=== PATIENT | male | born 1980 | race Two or more races ===

== ENCOUNTER 2025-06-06 10:11 | Outpatient (REF) | payer OTHER, SELFPAY ==
--- OUTSIDE RECORDS SUMMARY | 2025-06-06 09:00 | XMS_ITS | Encounter Summary ---
Author Organization [employer] Address [address] [facility] [address] [place] [address] Care Team Providers Care Entry Level Accounting Clerk Name Role Phone Unavailable Primary Care Provider Unavailabl e Reason for Referral * Consultation (Routine) - Authorized Specialty Diagnoses / Procedures Referred By Contac t Referred To Contact Dermatology / Family Medicine Diagnoses Sharron Verduzco NP [address] [place] [address] Phone: tel: fax: Blanca Gutiérrez MD [address] [place] [address] Phone: tel: fax: Referral ID Status Reason Start Date Expiration Date Visits Requested Visits Authorized [id number] Authorized Consult and Treat 06/06/2025 06/06/2026 1 1 Encounter Details Date Type Department Care Team (Late st Contact Info) Description 06/06/2025 9:00 AM EST Office Visit [facility] [address] [place] [phone] Healthcare maintenance (Primary Dx); Moderate persistent asthma without complication; Tinea pedis of both feet; Furuncle; Anxiety and depression; Hypothyroidism, unspecified type Social History Tobacco Use Types Packs/Day Years Used Date Smoking Tobacco: Never Passive Smoke Exposure: Never Smokeless Tobacco: Never Tobacco Cessation:Counseling Given: Not Answered Alcohol Answer Date Recorded How often do you have a drink containing alcohol ? 1 06/06/2025 How many drinks containing a lcohol do you have on a typical day when you are drinking? 0 06/06/2025 How often do you have six or more drinks on one occasion? 0 06/06/2025 Depression Answer Date Recorded Patient Health Questionnaire-9 Score 1 06/06/2025 Patient Health Questionnaire-9 Score 1 06/06/2025 Last PHQ-9: Questionnaire Data Not on file 1 08/06/2024 Housing Stability Answer Date Recorded What is your housing situation today? I have herberth lee 06/06/[address] you li ve. Do you have problems with any of the following? None of the above 06/06/2025 Food Insecurity Answer Date Recorded Within the past 12 months, y ou worried that your food would run out before you got money to buy more: Never True 06/06/2025 Within the past 12 months,th e food you bought just didn't last and you didn't have enough money to get more: Never True Transportation Answer Date Recorded In the past 12 months, has l ack of transportation kept you from medical appts, meetings, work or from getting things needed for daily living? No 06/06/2025 Utilities Answer Date Recorded In the past 12 months, has t he electric, gas, oil or water company threatened to shut off services in your home? No 06/06/2025 Depression Answer Date Recorded Patient Health Questionnaire-2 Score 0 06/06/2025 Internet Access Answer Date Recorded Internet Access Q1 Yes 06/06/2025 Internet Access Q2 Not on file 06/06/2025 Sex and Gender Information Value Date Recorded Sex Assigned at Male 05/11/2025 10:20 AM EDT Legal Sex Male 10:15 AM EDT Gender Identity Male 05/11/2025 10:20 AM EDT Sexual Orientation Straight 05/11/2025 10 :20 AM EDT documented as of this encounter Last Filed Vital Signs Vital Sign Reading Time Taken Comments Blood Pressure 128/82 06/06/2025 9:07 AM EST Pulse 72 06/06/2025 9:07 AM EST Temperature 36.6 C (97.8 F) 06/06/2025 9:07 AM EST Respiratory Rate 16 06/06/2025 9:07 AM EST Oxygen Saturation 97% 06/06/2025 9:07 AM EST Inhaled Oxygen Concentration - - Weight 84.1 kg (185 lb 8 oz) 06/06/2025 9:07 AM EST Height 181.8 cm (5' 11.56 ) 06/06/2025 9:[address] Body Mass Index 25.47 06/06/2025 9:07 AM EST documented in this encounter Functional Status * Over the past 2 weeks, how often have you been bothered by any of the following problems? Question Answer Date of Assessment Author Patient Health Questionnaire -2 Score 0 06/06/2025 9:59 AM EST Tika Kraus MA * Little interest or pleasure in doing things Answer Date of Assessment Author Not at all 06/06/2025 9:59 AM EST Yadiel Tika Gonsalves MA * Feeling down, depressed, or hopeless Answer Date of Assessment Author Not at all 06/06/2025 9:59 AM EST Yadiel Tika Gonsalves MA * Trouble falling or staying asleep, or sleeping too much Answer Date of Assessment Author Several days 06/06/2025 9:59 AM EST Yadiel Tika Gonsalves MA * Feeling tired or having little energy Answer Date of Assessment Author Not at all 06/06/2025 9:59 AM EST Yadiel Tika Gonsalves MA * Poor appetite or overeating Answer Date of Assessment Author Not at all 06/06/2025 9:59 AM EST Yadiel Tika Gonsalves MA * Feeling bad about yourself - or that you are a failure or have let yourself or your family down Answer Date of Assessment Author Not at all 06/06/2025 9:59 AM EST Yadiel Tika Gonsalves MA * Trouble concentrating on things, such as reading the newspaper or watching television Answer Date of Assessment Author Not at all 06/06/2025 9:59 AM EST Yadiel Tika Gonsalves MA * Moving or speaking so slowly that other people could have noticed? Or the opposite - being so fidgety or restless that you have been moving around a lot more than usual. Answer Date of Assessment Author Not at all 06/06/2025 9:59 AM EST Tika Workman MA * Thoughts that you would be better off or hurting yourself in some way Answer Date of Assessment Author Not at all 06/06/2025 9:59 AM EST Tika Workman MA * Patient Health Questionnaire-9 Score Answer Date of Assessment Author 1 06/06/2025 9:59 AM Tika Gregorio MA * Over the last 2 weeks, how often have you been bothered by any of the following problems? Question Answer Date of Assessment Author Feeling nervous, anxious, or on edge 0 06/06/2025 10:00 AM Tika Mason MA Not being able to stop or control worrying 0 06/06/2025 10:00 AM Tika Mason MA Worrying too much about different things 0 06/06/2025 10:00 AM Tika Mason MA Trouble relaxing 0 06/06/2025 10:00 AM Tika Mason MA Being so restless that it is hard to sit still 0 06/06/2025 10:00 AM Tika Mason MA Becoming easily annoyed or irritable 1 06/06/2025 10:00 AM Tika Mason MA Feeling afraid as if something awful might happen 0 06/06/2025 10:00 AM Tika Pelletier MA ALDEN-7 Total Score 1 06/06/2025 10:00 AM Tika Mason MA * How difficult have these problems made it for you to do your work, take care of things at home, or get along with other people? Answer Date of Assessment Author Not difficult at all 06/06/2025 9:59 AM Tika Segal MA documented as of this encounter Miscellaneous Notes * Assessment & Plan Note - Sofya Lara NP - 06/06/2025 9:00 AM ESTAssociated Problem(s): Anxiety and depression - Anxiety and depression previously present, currently controlled without medication. - PHQ-9 & ADLEN-7 negative today. No further intervention required at this time. * Assessment & Plan Note - Sofya Lara NP - 06/06/2025 9:00 AM ESTAssociated Problem(s): Moderate persistent asthma without complication - Asthma with suboptimal control due to inconsistent use of controller inhalers and ongoing cannabis smoking. Differential includes possible COPD, given symptoms and smoking history. Mucus productionwith yellow and brown coloration noted. - Ordered refills for controller inhalers (Symbicort) and albuterol inhaler. Will consider pulmonary function testing to reassess diagnosis and distinguish between asthma and COPD. Advised to consider non-inhaled forms of cannabis (tinctures, edibles) to reduce pulmonary irritation. Scheduled follow-up after return from [place] to reassess inhaler use and symptom control. Orders: budesonide-formoterol (Symbicort) 80-4.5 MCG/ACT inhaler; Inhale 2 puffs in the morning and at bedtime. Rinse mouth with water after use to reduce aftertaste and incidence of candidiasis. Do not swallow. albuterol 108 (90 Base) MCG/ACT inhaler; Inhale 2 puffs every 4 (four) hours if needed for wheezing. * Assessment & Plan Note - Sofya Lara NP - 06/06/2025 9:00 AM ESTAssociated Problem(s): Hypothyroidism Orders: TSH W/Reflex to FT4; Future * Assessment & Plan Note - Sofya Lara NP - 06/06/2025 9:00 AM ESTAssociated Problem(s): Furuncle - Recurrent subcutaneous abscesses/boils, partially responsive to antibiotics, with persistent lesions. - Placed referral to dermatology for further evaluation and management. Advised to discuss ongoing and persistent lesions with regulatory law specialist. Orders: Referral to [facility] Derm Skin; Future * Assessment & Plan Note - Sofya Lara NP - 06/06/2025 9:00 AM ESTAssociated Problem(s): Tinea pedis of both feet - Plantar calluses with associated pain, pruritus, and intermittent blistering. Wilc-vxl-[id number] treatments ineffective. Etiology unclear. - Recommended keeping feet dry, changing socks frequently, and spending time barefoot when possible. Advised to discuss foot symptoms with dermatology at upcoming referral. -Apply ketoconazole 2% cream to soles of feet and between toes nightly for 4 weeks documented in this encounter Plan of Treatment Scheduled Orders Name Type Priority Associated Diagnoses Orde r Schedule TSH W/Reflex to FT4 Lab Routine Hypothyroidism, unspecified type Expected: 06/06/2025 (Approximate), Expires: 06/06/2026 Comprehensive Metabolic Panel Lab Routine Healthcare maintenance Expected: 06/06/2025 (Approximate), Expires: 06/06/2026 Lipid Panel, Standard Lab Routine Healthcare maintenance Expected: 06/06/2025 (Approximate), Expires: 06/06/2026 Scheduled Referrals Name Type Priority Associated Diagnoses Orde r Schedule Referral to [facility] Derm Skin Outpatient Referral Routine Furuncle Expected: 06/06/2025 (Approximate), Expires: 06/06/2026 documented as of this encounter Procedures Procedure Name Priority Date/Time Associated Diagnosis Comments CBC WITH AUTO DIFFERENTIAL Routine 06/06/2025 10:17 AM EST Healthcare maintenance documented in this encounter Results * (ABNORMAL) CBC auto differential (06/06/2025 10:17 AM EST) White Blood Count 5.5 4.8 - 10.8 X10*3/uL [facility] Red Blood Count 3.85(L) 4.60 - 5.80 X10*6/uL [facility] Hemoglobin 12.5(L) 14.0 - 18.0 g/dl [facility] Hematocrit 36.6(L) 42.0 - 52.0 % [facility] Mean Corpuscular Volume 95.1 80.0 - 98.0 fL [facility] Mean Corpuscular Hemoglobin 32.5 27.0 - 33.0 pg [facility] Mean Corpuscular HGB Conc 34.2 31.0 - 36.0 g/dl [facility] Red Cell Distribution Width 13.9 11.0 - 16.0 % [facility] Platelet Count 131(L) 160 - 400 X10*3/uL [facility] Mean Platelet Volume 12.4 9.4 - 12.4 fL [facility] Neutrophils Percent Auto 47.0 45 - 73 % [facility] Imm Gran Pct Auto 0.2 0.0 - 0.4 % [facility] Lymphocytes Percent Auto 29.7 20 - 40 % [facility] Monocytes Percent Auto 10.6 2 - 11 % [facility] Eosinophils Percent Auto 10.9(H) 0 - 4 % [facility] Basophils Percent Auto 1.6 0 - 2 % [facility] NRBC Pct Auto 0.0 0.0 - 0.2 /100WBC [facility] Neutrophils Absolute Auto 2.6 2.0 - 8.3 x10*3/uL [facility] Imm Gran Abs Auto 0.01 0.00 - 0.03 X10*3/uL [facility] Lymphocytes Absolute Auto 1.6 1.2 - 4.9 X10*3/uL [facility] Monocytes Absolute Auto 0.6 0.1 - 1.2 X10*3/uL [facility] Eosinophils Absolute Auto 0.6(H) 0.0 - 0.4 X10*3/uL [facility] Basophils Absolute Auto 0.1 0.0 - 0.2 X10*3/uL [facility] NRBC Abs Auto 0.000 0.0 - 0.012 X10*3/uL [facility] Blood Venous blood specimen / Unknown 06/06/2025 10:17 AM EST 06/06/2025 11:26 AM EST us Sharron Sue [employer] LAB BLOOD ORDERABLES Final Resul t [facility] [address] [place], [place] [phone] documented in this encounter Visit Diagnoses Diagnosis Healthcare maintenance- Primary Moderate persistent asthma without complication Tinea pedis of both feet Furuncle Carbuncle and furuncle of unspecified site Anxiety and depression Hypothyroidism, unspecified type documented in this encounter Additional Health Concerns Assessment Noted Time PHQ-9 Depression Total Score: 1 06/06/ 25 9:59 AM EST documented as of this encounter
[2025-06-06 11:29] LABS: MANUAL DIFF FLAG NO
[2025-06-06 11:34] LABS: Hematocrit 36.6 % (42.0-52.0); Hemoglobin 12.5 g/dl (14.0-18.0); Imm Gran Abs Auto 0.01 X10*3/uL (0.00-0.03); Imm Gran Pct Auto 0.2 % (0.0-0.4); Lymphocytes Absolute Auto 1.6 X10*3/uL (1.2-4.9); Mean Corpuscular HGB Conc 34.2 g/dl (31.0-36.0); Mean Corpuscular Hemoglobin 32.5 pg (27.0-33.0); Mean Corpuscular Volume 95.1 fL (80.0-98.0); NRBC Abs Auto 0.000 X10*3/uL (0.0-0.012); NRBC Pct Auto 0.0 /100WBC (0.0-0.2); Platelet Count 131 X10*3/uL (160-400); Red Blood Count 3.85 X10*6/uL (4.60-5.80); White Blood Count 5.5 X10*3/uL (4.8-10.8)
--- OUTSIDE RECORDS SUMMARY | 2025-06-06 11:59 | XMS_ITS | Clinical Summary ---
Author Organization [facility] Address [address] [place] [phone] Phone Care Team Providers Care Fitter Type Bar And Segment Name Role Phone Pcp, Unknown Primary Care Provider Unavailabl e Social History Tobacco Use Types Packs/Day Years Used Date Smoking Tobacco: Never Assessed Education Answer Date Recorded Are you interested in more education? Not on hsyanne e 04/24/2025 Are you concerned about learning? Not on file 04/24/2025 No 04/24/2025 No 04/24/2025 Digital Access Answer Date Recorded No 04/24/2025 No 04/24/2025 Reliable internet access at home? Not on file 04/24/2025 Device with a working camera? Not on file Sex and Gender Information Value Date Recorded Sex Assigned at Not on file Legal Sex Male 9:47 AM EDT Gender Identity Not on file Sexual Orientation Not on file Plan of Treatment Upcoming Encounters Date Type Department Care Team (Late st Contact Info) Description 10/23/2025 1:20 PM EDT Office Visit [facility] Internal Medicine [address] [place] [address] Serenity Espinosa PA-C [address] [place] [address] [email or web address] Health Maintenance Due Date Last Done Comments Adult Td,Tdap Booster 1980 LIPID PANEL 1980 DEPRESSION SCREENING 1992 SMOKING Hx and SMOKELESS TOB ACCO SCREENING 1993 HEPATITIS C SCREENING 1998 HIV ONE-TIME SCREENING (18-6 5 YEARS) 1998 INFLUENZA VACCINE (#1) 2025 COVID-19 VACCINE (2024-2 6 season) 2025 COLOGUARD 2025 COLONOSCOPY 2025 COLORECTAL CANCER SCREENING 2025 FIT TEST 2025 FOBT 2025 SIGMOIDOSCOPY 2025 VIRTUAL COLONOSCOPY 2025 HEPATITIS A VACCINES Aged Out No long er eligible based on patient's age to complete this topic HIB VACCINES Aged Out No longer eligi ble based on patient's age to complete this topic MENINGOCOCCAL VACCINES (ACWY) Aged Out No longer eligible based on patient's age to complete this topic MENINGOCOCCAL VACCINES (B) Aged Out N o longer eligible based on patient's age to complete this topic PNEUMOCOCCAL VACCINES (0-49 years) Aged Out No longer eligible based on patient's age to complete this topic Medical Devices Not on file Insurance JUAN PANDYA [id number] [facility] MEDICARE REPLACEMENT JUAN PANDYA [id number] [place] [address] [place] [address] RE[place] [place] [address] [place] [address] [employer] MEDICARE REPLACEMENT JUAN PANDYA [facility] Care Teams Fitter Type Bar And Segment Relationship Specialty Start Date End Date Pcp, Unknown PCP - General 04/24/25 Additional Source Comments The information contained in this document represents components of the legal health record. It is not the complete legal health record.[facility]
--- OUTSIDE RECORDS SUMMARY | 2025-06-06 11:59 | XMS_ITS | Encounter Summary ---
Author Organization [employer] Address [address] [facility] [address] [place] [address] Care Team Providers Care Belt Puncher Name Role Phone Unavailable Primary Care Provider Unavailabl e Encounter Details Date Type Department Care Team (Latest Contact Info) Description 06/06/2025 Travel Social History Tobacco Use Types Packs/Day Years Used Date Smoking Tobacco: Never Passive Smoke Exposure: Never Smokeless Tobacco: Never Alcohol Answer Date Recorded How often do [...] AM EDT documented as of this encounter Functional Status * Over the past 2 weeks, how often have you been bothered by any of the following problems? Question Answer Date of Assessment Author Patient Health Questionnaire -2 Score 0 06/06/2025 9:59 AM Tika Mason MA * Little interest or pleasure in doing things Answer Date of Assessment Author Not at all 06/06/2025 9:59 AM Tika Gregorio MA * Feeling down, depressed, or hopeless Answer Date of Assessment Author Not at all 06/06/2025 9:59 AM Tika Gregorio MA * Trouble falling or staying asleep, or sleeping too much Answer Date of Assessment Author Several days 06/06/2025 9:59 AM Tika Gregorio MA * Feeling tired or having little energy Answer Date of Assessment Author Not at all 06/06/2025 9:59 AM Tika Gregorio MA * Poor appetite or overeating Answer Date of Assessment Author Not at all 06/06/2025 9:59 AM Tika Gregorio MA * Feeling bad about yourself - or that you are a failure or have let yourself or your family down Answer Date of Assessment Author Not at all 06/06/2025 9:59 AM Tika Gregorio MA * Trouble concentrating on things, such as reading the newspaper or watching television Answer Date of Assessment Author Not at all 06/06/2025 9:59 AM Tika Gregorio MA * Moving or speaking so slowly that other people could have noticed? Or the opposite - being so fidgety or restless that you have been moving around a lot more than usual. Answer Date of Assessment Author Not at all 06/06/2025 9:59 AM Tika rGegorio MA * Thoughts that you would be better off or hurting yourself in some way Answer Date of Assessment Author Not at all 06/06/2025 9:59 AM Tika Gregorio MA * Patient Health Questionnaire-9 Score Answer [...] Segal MA documented as of this encounter Plan of Treatment Not on file documented as of this encounter Visit Diagnoses Not on filedocumented in this encounter Additional Health Concerns Assessment Noted Time PHQ-9 Depression Total Score: 1 06/06/20 9:59 AM EST documented as of this encounter
--- OUTSIDE RECORDS SUMMARY | 2025-06-06 11:59 | XMS_ITS | Clinical Summary ---
Author Organization [facility] Address [address] [place] [address] Care Team Providers Care Credit Balance Specialist Name Role Phone Unavailable Primary Care Provider Unavailabl e Social History Tobacco Use Types Packs/Day Years Used Date Smoking Tobacco: Never Assessed Sex and Gender Information Value Date Recorded Sex Assigned at Not on file Legal Sex Male 6:14 PM EDT Gender Identity Not on file Sexual Orientation Not on file Plan of Treatment Health Maintenance Due Date Last Done Comments Hepatitis C Virus Screening 1980 HIV Screening 1993 DTaP/Tdap/Td Vaccines (1 - Tdap) 1999 Hepatitis B Vaccines (1 of 3 - 19+ 3-dose series) 1999 COVID-19 Vaccine (2023-2 5 season) 2025 HPV Vaccines (No Doses Required) Completed Pneumococcal Vaccine: Pediat mani (0-5 Years) and At-Risk Patients (6 to 49 Years) Aged Out No longer eligible b ased on patient's age to complete this topic
--- OUTSIDE RECORDS SUMMARY | 2025-06-06 11:59 | XMS_ITS | Continuity of Care Document ---
Author Organization [facility], [facility] Address [address] [place] [address] Care Team Providers Care Dungeon Master Name Role Phone HIM CCA OTHER Assessment No assessment recorded. Plan of Treatment Reminders Order Date Submit Date Provider Last Modified By Organization Details Last Modified Time Details Appointments None recorded. Lab None recorded. Referral None recorded. Procedures None recorded. Surgeries None recorded. Imaging None recorded. Medication Orders Bactrim DS 800 mg-160 mg tablet 2024 025 [facility]armacy #[id number], [address] [place], [address], 05:01:26 Bactrim DS 800 mg-160 mg tablet 2024 025 [facility]armacy #[id number], [address] [place], [address], 05:01:26 ipratropium 0.5 mg-albutero l 3 mg (2.5 mg base)/3 mL nebulizatio n soln 2024 025 [facility]/Pharmacy #[id number], [address] [place], [address], 5 21:35:00 prednisone 20 mg tablet 2024 025 [facility]/Pharmacy #[id number], [address] [place], [address], 05:01:33 prednisone 20 mg tablet 2024 025 [facility]armacy #[id number], [address] [place], [address], 05:01:33 Patient TargetsNo targets recorded. Patient InstructionsNo instructions recorded. Reason for Referral None Reported. Medical Equipment None Reported. Allergies No known drug allergies Medications Name Sig Start Date Stop Date Status Note LastModified by Organization Details LastModified Time prednisone 10 mg tablet TAKE 4 TAB BY MOUTH FOR 3 DAYS, THEN 3 TABS FOR 3 DAYS, THEN 2 TABS FOR 3 DAYS, THEN 1 TAB X 3 DAY active Not Available Not Available No t Available azithromyci n 250 mg tablet TAKE 2 TABLETS BY MOUTH ONCE ON DAY 1, THEN 1 TABLET BY MOUTH ONCE ON DAYS 2 THROUGH 5. 05/11 completed Not Available Not Available Not Available meloxicam 15 mg tablet TAKE 1 TABLET EVERY DAY BY ORAL ROUTE AFTER MEAL(S). active Not Available Not Available No t Available prednisone 20 mg tablet Take 2 tablets every day by oral route for 4 days. 05/22 completed Not Available Not Available Not Available aspirin 81 mg tablet,hermilo yed release TAKE 1 TABLET BY MOUTH TWO TIMES A DAY. active Not Available Not Available No t Available acetaminoph en 500 mg tablet TAKE 2 TABLETS BY MOUTH 3 TIMES A DAY NEEDED FOR PAIN,INST R:NOT TO EXCEED 3000 MG/DAY active Not Available Not Available No t Available oxycodone 15 mg tablet TAKE 1 TABLET EVERY 6 HOURS BY ORAL ROUTE WITH MEAL(S) FOR 7 DAYS, FOR PAIN NEEDED. active Not Available Not Available No t Available fluticasone propionate 50 mcg/actuati on nasal spray,suspe nsion USE 1 SPRAY IN EACH NOSTRIL TWICE A DAY active Not Available Not Available No t Available doxycycline hyclate 100 mg tablet TAKE 1 TABLET BY MOUTH 2 TIMES A DAY FOR 14 DAYS,MAY TAKE WITH FOOD.TAKE WITH FLUIDS 05/11 completed Not Available Not Available Not Available Hibiclens 4 % topical liquid 1 APPLICATO R TOPICALLY ONCE,INST R: DIRECTED active Not Available Not Available No t Available oxycodone 5 mg tablet TAKE 1 TABLET EVERY DAY BY ORAL ROUTE NEEDED FOR 7 DAYS, FOR PAIN. active Not Available Not Available No t Available Bactrim DS 800 mg-160 mg tablet Take 1 tablet every 12 hours by oral route for 5 days. 10/31/ 2025 11/12 /2025 completed Not Available Not Available Not Available cholecalcif serge (vitamin D3) 1,250 mcg (50,000 unit) capsule TAKE 1 CAPSULE BY MOUTH EVERY WEEK FOR 84 DAYS active Not Available Not Available No t Available 12 Hour Decongestan t ER 120 mg tablet,exte nded release TAKE 1 TABLET BY MOUTH EVERY 12 HOURS NEEDED FOR COLD SYMPTOMS active Not Available Not Available No t Available fluticasone furoate 100 mcg-vilante rol 25 mcg/dose inhalation powder INHALE 1 PUFF BY MOUTH DAILY active Not Available Not Available No t Available Vitals Date Recorded Respiratory rate Body weight Heart rate Body height Body temperature Oxygen saturation Systolic And Diastolic Provider Name and Address Organization Details Last Updated DateTime 5 16 /min 06610.7 44 g 75 /min 180.34 cm 98 [degF] 94 % 130/90 mm[Hg] Not Available [facility] - production 5 21:23:55 Social History None recorded. Functional Status None recorded. Mental Status None recorded. Family History Nothing Reported. Medical History No medical history recorded. Past Encounters Encounter ID Performer Location Encounter Start Date Encounter Closed Date Diagnosis/Indication Diagnosis SNOMED-CT Code Diagnosis ICD10 Code Diagnosis IMO Codes Diagnosis Note [id number] RADHA TATUM MD [facility] Medical [address] [address] 05/11/2025 21:17:16 05/15/2025 14:19:29 Furuncle of buttock 51273065 L02.32 123 Evaluation in the field was performed by my contracting engineer colleague, as noted above, I provided real-time direction and supervisio n for this visit. The evaluation revealed 44-year-ol d male with a history of Asthma on Symbicort, Breo Ellipta, and Albuterol, presenting with painful boils on the buttocks for the past 2 days. Spouse reports multiple red, tender lumps on the buttocks that have increased in size. One lesion has a central white head appearing close to opening but no active drainage. The patient denies fever or chills, is not taking any pain medication , and reports pain severe enough to prevent sitting comfortabl y. Vital Signs:BP 130/90 , Pulse 75 bpm, Resp 16, Temp 98.0 F, SpO2 94% on room airExam:AA O 3, intermitte ntly coughing.L ungs: Diffuse expiratory wheeze.Ski n: Two small, inflamed, tender nodules over the bilateral gluteal region, consistent with early furuncles (boils). No active drainage or fluctuance noted.Russell rgies reviewed. Impression :Bilateral gluteal furuncles (boils) early localized infection, no abscess formation. Plan:Bactr im DS 1 tablet BID 5 days.Warm compresses 3 4 times daily to promote drainage.T ylenol 1 gram every 8 hours PRN for pain.Encou rage adequate hydration and maintain hygiene of affected area.Red flags discussed including : fever, spreading redness, increasing pain, drainage, or signs of abscess return or seek urgent care if these occur. Primary care, consider__ _ Dispositio n: We discussed the diagnostic uncertaint y of home visits and the risk associated with this. In this case, the patient and I felt this to be an acceptable and reasonable amount of risk given the benefit of avoiding an ED visit. We discussed the need to seek care urgently/e mergently in the setting of any new or worsening serious symptoms, particular ly fever, spreading redness, increasing pain, drainage, or signs of abscess Acute asthma [id number] J 45.528 [id number] 44-year-ol d male with a history of asthma on Symbicort, Breo Ellipta, and Albuterol presenting with intermitte nt dry cough and wheezing. Completed a prednisone course about 3 weeks ago. Denies sick contacts, fever, or chills.Exa m:AAO 3, intermitte nt dry cough. Diffuse expiratory wheeze noted. SpO 94% on room air. Impression :Mild asthma exacerbati on. Plan:Conor mccullough x1 administer ed.Prednis one 40 mg daily 5 days; first dose given by contracting engineer. Continue chronic asthma medication s (Symbicort , Breo Ellipta, Albuterol) .Red flags reviewed: worsening shortness of breath, chest pain, or lack of improvemen t advised to seek urgent care or ED if symptoms worsen. Health Concerns Section Related Observation LastModified by Organization Detai ls LastModified Time None Recorded Concern Status LastModified by Organization Details LastModified Time None Recorded Payers Encounter Date Sequence Insurance Name Policy Number Policy Echols Covered Member ID Echols Member ID Guarantor Name 05/11/2025 1 [facility] - DOS ON OR AFTER 2022 - DUAL ELIGIBLE - ALF OPTIONS AND ONE CARE (MEDICARE REPLACEMENT/AD VANTAGE - HMO) Rangel Soliz [id number] Rangel Soliz Notes Date Note Type Note Provider Name and Address Organization Details Recorded Time 05/11/2025 text/html ROS as noted in the [facility] Nurse Triage Notes (Lalitha Gunderson): Reason For Request: Patient has boils on his Butt, and would like them checked out or to talk to a nurse. Patient Reports: Abscess Denies: Carlin Flash, circumferential carlin Carlin reported with black tissue to the area Open skin area after a fall with uncontrolled bleeding Abscess/infection with streaking noted, presence of fever or without Chief Complaints: Wound Care PMH: Other PMH Reviewed at 05/11/202553 Allergies Reviewed at 05/11/2025:53 Comments: 44 y.o male complains of Wound Care Spouse reports patient has several lumps to buttocks. Areas are painful and red that have been increasing in size over the last 2 days. One lump has a white head that appears close to opening. Not draining currently. No fever or chills. Not taking anything for pain. History of folliculitis with antibiotic treatment. I provided information on the mobile health provider response time and advised the patient and/or caregiver to monitor reported signs and symptoms. I discussed the warning signs of when to seek emergency care. ..................... ..................... ..................... ..................... ..................... ..................... ............... Aerial Gunner Note From Zach Dhillon: [facility] responds to the listed address for a 44 yom w/ a c/c of boils on his rump. Upon arrival on scene, pt answers the door for [facility]. He is alert and fully ambulatory and NAD. No stridor or sonorous respirations are present, no facial droop, slurred speech, or one-sided weakness are observed and he is not bleeding anywhere. Pt tells [facility] he has a life-long hx of folliculitis and for the past 2 days, he has had some hard and painful bumps on his rear end that have been getting bigger and more painful. He and his girlfriend on scene report one of the bumps had some drainage. He also has two very small bumps forming on his head. It has been awhile since he has had an issue and they normally clear up after abx. He does not remember what abx he has been prescribed in the past, but he has NKDA. During physical assessment, it is noted pt has a wheezy and dry cough and expiratory wheezes and [facility] offers to ask about administering a dupneb for him. He says he has asthma and he is on three inhalers for control and has a SVN. He was placed on a prednisone taper to treat a developing URI about three weeks ago, but he feels the symptoms are coming back and he is excited about a duoneb. Pt consents to evaluation and tx today. [facility] gathers pt consent signature. Vital signs are obtained and pt is assessed. Pt is normotensive, afebrile, and not hypoxic, but SpO2 is 94% on RA. Overall physical exam is unremarkable, but expiratory wheezes are noted throughout the lungs. Pt also has two quarter-sized lumps, one on each glute between the folds. One is red and appears to have recently drained and the other is not as red and appears to be intact. Pt also has two very small and hard bumps on the posterior parietal area of his scalp. Photos are obtained for [facility] inspections. [facility] contacts [facility] and discusses the above. [facility] prescribes bactrim and order 800mg [id number] PO for pt. [facility] also approves a duoneb for the pt and 40mg prednisone PO and sends prescription for abx and prednisone taper to pt's pharmacy. [facility] administers 800mg x1 tablet bactrim PO and 20mg prednisone x2 tablets PO to pt. [facility] also administers one duoneb at 8lpm via nebulizer pipe. Lung sounds are reassessed post neb and are improved to clear to auscultation bilaterally. Pt subjectively feels better post neb. [facility] recommends pt use his Symbicort BID and to continue his Abreo as prescribed and his SVN treatments. [facility] also recommends pt go to the ED if his skin condition gets worse or if he develops a high fever. Pt thanks [facility] for coming. [facility] is clear. Report completed by CHAMP Dhillon [id number]. [facility] Medication Orders: Bactrim DS 800 mg-160 mg tablet: Administered ipratropium 0.5 mg-albuterol 3 mg (2.5 mg base)/3 mL nebulization soln: Administered prednisone 20 mg tablet: Administered ..................... ..................... ..................... ..................... ..................... ..................... ............... [facility] Consulted: Radha Tatum ..................... ..................... ..................... ..................... ..................... ..................... ............... Disposition: John TATUM MD [address] [facility],[address], [place], [address], [place] 05/12/2025 07:33:50
--- OUTSIDE RECORDS SUMMARY | 2025-06-06 11:59 | XMS_ITS | Encounter Summary ---
Author Organization [employer] Address [address] [place] [address] [address] [place] [address] Care Team Providers Care Side Puller Name Role Phone Unavailable Primary Care Provider Unavailabl e Reason for Visit * Reason Onset Date Comments Chart Prep 06/05/2025 Encounter Details Date Type Department Care Team (Late st Contact Info) Description 06/05/2025 Telephone [facility] MEDICINE [address] [place], [place] [phone] Sofya Lara NP [address] [place] [address] Chart Prep Social History Tobacco Use Types Packs/Day Years Used Date Smoking Tobacco: Never Assessed Alcohol Answer Date Recorded How often do [...] is your housing situation today? I have herberthvarinder lee 06/06/[address] you [...] AM EDT documented as of this encounter Miscellaneous Notes * Telephone Encounter - Tika Ng [place] - 06/05/2025 4:03 PM EST Chart Prep Labs: not applicable Images: not applicable Referrals: not applicable Vaccines due: Covid, Flu, PCV20, Tdap, Hep B, and HPV Screenings: colonoscopy and HIV, Hep C. Lipid panel. Overdue care gaps: SBIRT, SDOH, PHQ-9, ALDEN-7, Oral health screening, and Tobacco documented in this encounter Plan of Treatment Not on file documented as of this encounter Visit Diagnoses Not on filedocumented in this encounter
--- OUTSIDE RECORDS SUMMARY | 2025-06-06 11:59 | XMS_ITS | Clinical Summary ---
Author Organization [employer] Address [address] [facility] [address] [place] [address] Care Team Providers Care Icing Coater Name Role Phone Unavailable Primary Care Provider Unavailabl e Allergies No known active allergies Medications budesonide-formot serge (Symbicort) 80-4.5 MCG/ACT inhalerIndication s:Moderate persistent asthma without complication Inhale 2 puffs in the morning and at bedtime. Rinse mouth with water after use to reduce aftertaste and incidence of candidiasis. Do not swallow. 10.2 g 11 5 06/06/20 Active albuterol 108 (90 Base) MCG/ACT inhalerIndication s:Moderate persistent asthma without complication Inhale 2 puffs every 4 (four) hours if needed for wheezing. 18 g 5 06/06/20 Active ketoconazole (NIZOral) 2 % creamIndications: Tinea pedis of both feet Apply to soles of feet and between toes nightly for 4 weeks 60 g Active Active Problems Problem Noted Date Diagnosed Date Anxiety and depression 06/06/2025 Assessment & Plan (06/06/2025 10:29 AM EST): - Anxiety and depression previously present, currently controlled without medication. - PHQ-9 & ALDEN-7 negative today. No further intervention required at this time. Moderate persistent asthma without complication 06/06/2025 Assessment & Plan (06/06/2025 10:29 AM EST): - Asthma with suboptimal control due to inconsistent use of controller inhalers and ongoing cannabis smoking. Differential includes possible COPD, given symptoms and smoking history. Mucus production with yellow and brown coloration noted. - Ordered refills for controller inhalers (Symbicort) and albuterol inhaler. Will consider pulmonary function testing to reassess diagnosis and distinguish between asthma and COPD. Advised to consider non-inhaled forms of cannabis (tinctures, edibles) to reduce pulmonary irritation. Scheduled follow-up after return from [place] to reassess inhaler use and symptom control. Orders: budesonide-formoterol (Symbicort) 80-4.5 MCG/ACT inhaler; Inhale 2 puffs in the morning and at bedtime. Rinse mouth with water after use to reduce aftertaste and incidence of candidiasis. Do not swallow. albuterol 108 (90 Base) MCG/ACT inhaler; Inhale 2 puffs every 4 (four) hours if needed for wheezing. 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 [id number] treatments ineffective. Etiology unclear. - Recommended keeping feet dry, changing socks frequently, and spending time barefoot when possible. Advised to discuss foot symptoms with dermatology at upcoming referral. -Apply ketoconazole 2% cream to soles of feet and between toes nightly for 4 weeks Furuncle 06/06/2025 Assessment & Plan (06/06/2025 10:29 AM EST): - Recurrent subcutaneous abscesses/boils, partially responsive to antibiotics, with persistent lesions. - Placed referral to dermatology for further evaluation and management. Advised to discuss ongoing and persistent lesions with communicable disease specialist. Orders: Referral to [facility] Derm Skin; Future Encounters Date Type Department Care Team Description 06/06/2025 9:00 AM EST Office Visit [facility] MEDICINE [address] [place] [address] Healthcare maintenance (Primary Dx); Moderate persistent asthma without complication; Tinea pedis of both feet; Furuncle; Anxiety and depression; Hypothyroidism, unspecified type 06/06/2025 Travel 06/05/2025 Telephone [facility] MEDICINE [address] [place] [address] Sofya Lara NP Chart Prep 05/30/2025 Travel from Last 3 Months Immunizations Immunization Administration Dates Next Due Tdap 08/29/2018 Family History Medical History Relation Name Comments Diabetes Mother Relation Name Status Comments Mother Social History Tobacco Use Types Packs/Day Years [...] Orientation Straight 05/11/2025 10 :20 AM EDT Last Filed Vital Signs Vital Sign Reading [...] Mass Index 25.47 06/06/2025 9:07 AM EST Plan of Treatment Health Maintenance Due Date Last Done Comments CT Colonography 1980 Colonoscopy 1980 Colorectal Cancer Screening 1980 FIT DNA/Cologuard 1980 FIT 1980 FOBT 1980 HIV Screening 1980 Lipid Panel 1980 Sigmoidoscopy 1980 Family Planning (PISQ) 1995 HPV Vaccines (1 - Male 3-dos e series) 1995 Hepatitis C Screening 1998 Hepatitis B Vaccines (1 of 3 - 19+ 3-dose series) 1999 Pneumococcal Vaccine: Pediatrics (0 to 5 Years) and At-Risk Patients (6 to 49) Years (1 of 2 - PCV) 1999 COVID-19 Vaccine (1 - 2024-2 6 season) 2025 Influenza Vaccine (#1) 2025 Alcohol/Substance Use Screening 06/06/2026 06/06/2025 Depression Screening 06/06/2026 06/06/2025, 06/06/2025 Disability Screening 06/06/2026 06/06/2025 SDOH Screening 06/06/2026 06/06/2025 Tobacco Screening 06/06/2026 06/06/2025 DTaP/Tdap/Td Vaccines (2 - T d or Tdap) 08/29/2028 08/29/2018 Zoster Vaccines (1 of 2) 2030 RSV Patients and Patients Aged 60 years or older (1 - 1-dose 75+ series) 2055 HIB Vaccines Aged Out No longer eligi ble based on patient's age to complete this topic Hepatitis A Vaccines Aged Out No long er eligible based on patient's age to complete this topic IPV Vaccines Aged Out No longer eligi ble based on patient's age to complete this topic Meningococcal B Vaccine Aged Out No l onger eligible based on patient's age to complete this topic Meningococcal Vaccine Aged Out No stacy joshua eligible based on patient's age to complete this topic RSV under 20 months Aged Out No longe r eligible based on patient's age to complete this topic Rotavirus Vaccines Aged Out No longer eligible based on patient's age to complete this topic Procedures Procedure Name Priority Date/Time Associated Diagnosis Comments CBC WITH AUTO DIFFERENTIAL Routine 06/06/2025 10:17 AM EST Healthcare maintenance from Last 3 Months Results * (ABNORMAL) CBC auto differential (06/06/2025 10:17 AM EST) White Blood Count 5.5 4.8 - 10.8 X10*3/uL [facility] Red Blood Count 3.85(L) 4.60 - 5.80 X10*6/uL [facility] Hemoglobin 12.5(L) 14.0 - 18.0 g/dl [facility] Hematocrit 36.6(L) 42.0 - 52.0 % [facility] Mean Corpuscular Volume 95.1 80.0 - 98.0 fL [facility] Mean Corpuscular Hemoglobin 32.5 27.0 - 33.0 pg [facility] Mean Corpuscular HGB Conc 34.2 31.0 - 36.0 g/dl [facility] Red Cell Distribution Width 13.9 11.0 - 16.0 % [facility] Platelet Count 131(L) 160 - 400 X10*3/uL [facility] Mean Platelet Volume 12.4 9.4 - 12.4 fL [facility] Neutrophils Percent Auto 47.0 45 - 73 % [facility] Imm Gran Pct Auto 0.2 0.0 - 0.4 % [facility] Lymphocytes Percent Auto 29.7 20 - 40 % [facility] Monocytes Percent Auto 10.6 2 - 11 % [facility] Eosinophils Percent Auto 10.9(H) 0 - 4 % [facility] Basophils Percent Auto 1.6 0 - 2 % [facility] NRBC Pct Auto 0.0 0.0 - 0.2 /100WBC [facility] Neutrophils Absolute Auto 2.6 2.0 - 8.3 x10*3/uL [facility] Imm Gran Abs Auto 0.01 0.00 - 0.03 X10*3/uL [facility] Lymphocytes Absolute Auto 1.6 1.2 - 4.9 X10*3/uL [facility] Monocytes Absolute Auto 0.6 0.1 - 1.2 X10*3/uL [facility] Eosinophils Absolute Auto 0.6(H) 0.0 - 0.4 X10*3/uL [facility] Basophils Absolute Auto 0.1 0.0 - 0.2 X10*3/uL [facility] NRBC Abs Auto 0.000 0.0 - 0.012 X10*3/uL [facility] Blood Venous blood specimen / Unknown 06/06/2025 10:17 AM EST 06/06/2025 11:26 AM EST us Sharron Sue NP LAB BLOOD ORDERABLES Final Resul t [facility] [address] [place], [place] [phone] [phone] from Last [address] [facility] < 65
--- OUTSIDE RECORDS SUMMARY | 2025-06-06 12:00 | XMS_ITS | Data Portability ---
Author Organization [facility] [facility] Address [address] [place] [address] Care Team Providers Care Dean Of Graduate Studies Name Role Phone HIM CCA OTHER Assessment No assessment recorded. Plan of Treatment Reminders Order Date Submit Date Provider Last Modified By Organization Details Last Modified Time Details Appointments None recorded. Lab None recorded. Referral None recorded. Procedures None recorded. Surgeries None recorded. Imaging None recorded. Medication Orders Bactrim DS 800 mg-160 mg tablet 2024 025 [facility]acy #[id number], [address] [place], [id number], 05:01:26 Bactrim DS 800 mg-160 mg tablet 2024 025 [facility]armacy #[id number], [address] [place], [address], 5 05:01:26 ipratropium 0.5 mg-albutero l 3 mg (2.5 mg base)/3 mL nebulizatio n soln 2024 025 [facility]/Pharmacy #[id number], [address] [place], [address], 5 21:35:00 prednisone 20 mg tablet 2024 025 [facility]armacy #[id number], [address] [place], [address], 5 05:01:33 prednisone 20 mg tablet 2024 025 [facility] #[id number], [address] [place], [address], 05:01:33 Patient TargetsNo targets recorded. Patient InstructionsNo [...] hours by oral route for 5 days. 05/23 completed Not Available Not Available Not Available [...] Details Last Updated DateTime 5 16 /min 20308.7 44 g 75 /min 180.34 cm 98 [...] ICD10 Code Diagnosis IMO Codes Diagnosis Note [id number] RADHA TATUM MD [facility] ED Medical [address] [address] 05/11/2025 21:17:16 05/15/2025 14:19:29 Furuncle of buttock 16010527 L02.32 123 Evaluation in the field was performed by my gas engineer colleague, as noted above, I provided [...] drainage, or signs of abscess Acute asthma 002469185 J 45.833 [id number] 44-year-ol d male with a history of [...] daily 5 days; first dose given by gas engineer. Continue chronic asthma medication s (Symbicort , Breo Ellipta, Albuterol) .Red flags reviewed: worsening shortness of breath, chest pain, or lack of improvemen t advised to seek urgent care or ED if symptoms worsen. Health Concerns Section Related Observation LastModified by Organization Detai ls LastModified Time None Recorded Concern Status LastModified by Organization Details LastModified Time None Recorded Advance Directives Directive None Recorded Payers Insurance Date Sequence Insurance Name Policy Number Policy Echols Covered Member ID Echols Member ID Guarantor Name 05/15/2025 1 [facility] - DOS ON OR AFTER 2022 - DUAL ELIGIBLE - [employer] OPTIONS AND ONE CARE (MEDICARE REPLACEMENT/AD VANTAGE - HMO) Rangel Soliz [id number] Rangel Soliz Notes Date Note Type Note Provider Name and Address Organization Details Recorded Time 05/11/2025 text/html ROS as noted in the [facility] Nurse Triage Notes (Lalitha Gunderson): Reason [...] ..................... ..................... ..................... ..................... ..................... ..................... ............... Dog Licenser Note From Zach Dhillon: [facility] responds to the listed address for a 44 yom w/ a c/c of boils on his rump. Upon arrival on scene, pt answers the door for [facility]. He is alert and fully ambulatory and [...] and dry cough and expiratory wheezes and [facility] offers to ask about administering a dupneb [...] Pt consents to evaluation and tx today. [facility] gathers pt consent signature. Vital signs are [...] of his scalp. [place] are [place] [facility] [place] [facility] [place] [facility] [place] discusses the above. [facility] [place] bactrim and order 800mg [id number] PO for pt. [facility] [place] appro[place] a duoneb for the pt and 40mg prednisone PO and sends prescription for abx and prednisone taper to pt's pharmacy. [facility] administers 800mg x1 tablet bactrim PO and 20mg prednisone x2 tablets PO to pt. [facility] also administers one duoneb at 8lpm via nebulizer pipe. Lung sounds are reassessed post neb and are improved to clear to auscultation bilaterally. Pt subjectively feels better post neb. [facility] [place] pt use his Symbicort BID and to continue his Abreo as prescribed and his SVN treatments. [facility] [place] recommends pt go to the ED if his skin condition gets worse or if he develops a high fever. Pt thanks [facility] for coming. [facility] is clear. Report completed by CHAMP Dhillon [id number]. [facility] Medication Orders: Bactrim DS 800 mg-160 mg tablet: Administered ipratropium 0.5 mg-albuterol 3 mg (2.5 mg base)/3 mL nebulization soln: Administered prednisone 20 mg tablet: Administered ..................... ..................... ..................... ..................... ..................... ..................... ............... [facility] Consulted: Radha Tatum ..................... ..................... ..................... ..................... ..................... ..................... ............... Disposition: John TATUM MD [address] [facility],[address], [place], [address], [employer] 05/12/2025 07:33:50
--- OUTSIDE RECORDS SUMMARY | 2025-06-06 12:00 | XMS_ITS | Clinical Summary ---
Author Organization [facility] Address [address] [place] [address] Care Team Providers Care Express Manager Name Role Phone Unavailable Primary Care Provider Unavailabl e Social History Tobacco Use Types Packs/Day Years Used Date Smoking Tobacco: Never Assessed Sex and Gender Information Value Date Recorded Sex Assigned at Not on file Legal Sex Male 8:27 AM EST Gender Identity Not on file Sexual Orientation Not on file Plan of Treatment Health Maintenance Due Date Last Done Comments Colorectal Cancer Screening: Colonoscopy 1980 DTaP,Tdap,and Td Vaccines (1 - Tdap) 1999 Hepatitis B Vaccines (1 of 3 - 19+ 3-dose series) 1999 HPV Vaccines (1 - 3-dose SCD M series) 2007 Cholesterol Screening (Lipid Panel) 06/14/2022 HIV Screening 06/14/2022 Hepatitis C Screening 06/14/2022 Social Influencers of Health Screening 06/14/2022 Depression Screening 07/12/2024 COVID-19 Vaccine ( - 2024-2 6 season) 2025 Influenza Vaccine (#1) 2025 RSV Immunization Adult Patie nts (1 - 1-dose 75+ series) 2055 HIB Vaccines Aged Out No longer eligi ble based on patient's age to complete this topic Hepatitis A Vaccines Aged Out No long er eligible based on patient's age to complete this topic IPV Vaccines Aged Out No longer eligi ble based on patient's age to complete this topic MMR Vaccines Aged Out No longer eligi ble based on patient's age to complete this topic Meningococcal ACWY Vaccine Aged Out N o longer eligible based on patient's age to complete this topic Meningococcal B Vaccine Aged Out No l onger eligible based on patient's age to complete this topic Pneumococcal Vaccine: Pediat rics (0 to 5 Years) and At-Risk Patients (6 to 49 Years) Aged Out No longer eligible b ased on patient's age to complete this topic RSV Immunization Patients Un mary 20 months Aged Out No longer eligible b ased on patient's age to complete this topic Varicella Vaccines Aged Out No longer eligible based on patient's age to complete this topic
[2025-06-06 14:07] LABS: Alanine Aminotransferase 23 U/L (0-40); Albumin Level 4.4 g/dL (3.5-5.0); Alkaline Phosphatase 57 U/L (39-117); Anion Gap 8 (12-20); Aspartate Amino Transferase 28 U/L (5-37); Blood Urea Nitrogen 8 mg/dL (9-16); Calcium 9.1 mg/dL (8.4-10.2); Carbon Dioxide 29 mmol/L (22-29); Chloride 109 mmol/L (96-108); Cholesterol 155 mg/dL (<200); Estimated Glomerular Filt Rate > 60; HDL Cholesterol 64 mg/dL (>40); Potassium 4.0 mmol/L (3.3-5.1); Sodium 142 mmol/L (135-145); Total Protein 6.8 g/dL (6.5-8.0); Triglycerides 42 mg/dL (<150)
== END 2025-06-06 10:12 | disposition home or self-care (01) ==
LOC: HO.HHCL 10:11
PROVIDERS: PCP Nurse Practitioner Family; Visit Provider Nurse Practitioner Family
DX: Z00.00 Encounter for general adult medical examination without abnormal findings (principal); E03.9 Hypothyroidism, unspecified
CPT/HCPCS: 36415; 80053; 80061; 84443; 85025